=== PATIENT | female | born 1975 | race Caucasian/White ===

== ENCOUNTER 2020-07-25 14:35 | Emergency (ER) | payer MEDICAID ==
[2020-07-25 14:47] VITALS: BP 110/70
--- NOTE | 2020-07-25 15:02 | ED Physician Documentation ---
PD HPI SKIN - Stated complaint Stated Complaint: ALLERGIC REACTION - Chief complaint Chief Complaint: Allergic Rx - History obtained from History obtained from: Patient - Additional information Additional information: About a month ago developed swelling and itching around her eyes, subsequently went away and now has it in the popliteal fossae bilaterally. She is tried dietary changes without relief. Review of Systems Constitutional: denies: Fever, Chills, Fatigue, Weight Loss Cardiac: reports: Reviewed and negative Respiratory: reports: Reviewed and negative PD PAST MEDICAL HISTORY - Present Medications Home Medications: Ambulatory Orders Medication Instructions Recorded Confirmed Clobetasol 0.05% Oint [Temovate 1 applic TOP BID #30 ml 07/25/20 0.05% Oint] - Allergies Allergies/Adverse Reactions: Allergies Allergy/AdvReac Type Severity Reaction Status Date / Time No Known Drug Allergies Allergy Verified 07/25/20 14:47 PD ED PE NORMAL - Vitals Vital signs reviewed: Yes - General General: Alert and oriented X 3, No acute distress - Derm Derm: Other (Eczematous type rash in the popliteal fossae, no other rashes noted by myself nor the patient.) - Neuro Neuro: Alert and oriented X 3, Normal speech Results - Vitals Vitals: Vital Signs - 24 hr 07/25/20 14:41 Temperature 36.8 C Heart Rate 81 Respiratory 16 Rate Blood Pressure 110/70 O2 Saturation 99 Oxygen O2 Source Room air Departure - Departure Disposition: 01 Home, Self Care Clinical Impression: Eczema Qualifiers: Eczema type: flexural Qualified Code(s): L20.82 - Flexural eczema Condition: Good Record reviewed to determine appropriate education?: Yes Instructions: ED Allergic Reaction General Other Follow-Up: Fifi Landrum DO [Provider Admit Priv/Credential] - [facility] [Provider Group] Prescriptions: Clobetasol 0.05% Oint [Temovate 0.05% Oint] 1 applic TOP BID #30 ml Comments: As discussed, this seems like an eczematous type rash related to likely environmental allergens. You should follow-up with a hedis abstractor if not rapidly better, also regarding primary care, doctor Lucita listed above is our designated follow-up provider for this week and you can call her office for primary care appointment.
== END 2020-07-25 15:14 | disposition home or self-care (01) ==
LOC: ED 14:35
DX: L20.82 Flexural eczema (principal)
CPT/HCPCS: 99282; 99283